=== PATIENT | male | born 1955 | race Hispanic/Latino ===

== ENCOUNTER 2019-10-02 09:37 | Inpatient (IN) | payer OTHER ==
[~2019-10-02] VITALS: Ht 167.6 cm; Wt 59.0 kg
[2019-10-02] MEDS ORDERED: ALBUTEROL INHALER 90MCG/INH IH ONE (09:49)
[2019-10-02 10:11] LABS: BASOPHILS % (AUTO) 1.2 % (0.0-5.0); EOSINOPHILS % (AUTO) 20.3 % (0.0-8.0); HEMATOCRIT 45.4 % (42-54); MEAN CORPUSCULAR HEMOGLOBIN 31.8 pg (27.0-33.0); MEAN CORPUSCULAR HGB CONC 34.8 g/dL (32.0-36.0); MEAN CORPUSCULAR VOLUME 91.3 fL (79-99); MONOCYTES % (AUTO) 8.6 % (3.0-13.0); NEUTROPHILS % (AUTO) 42.8 % (40.0-77.0); PLATELET COUNT (AUTO) 212 K/uL (130-400); RED BLOOD CELL COUNT(AUTO) 4.97 MIL/uL (4.50-6.20); RED CELL DISTRIBUTION WIDTH 12.8 % (11.0-15.5); WHITE BLOOD COUNT (AUTO) 7.5 K/uL (4.8-10.8)
[2019-10-02 10:13] LABS: CREATININE 0.9 mg/dL (0.5-1.5); POTASSIUM 3.9 mmol/L (3.5-5.1)
[2019-10-02] MEDS ORDERED: METHYLPREDNISOLONE SOD SUCC 125MG/2ML VIAL ONE (10:16)
[2019-10-02] MEDS ORDERED: LEVOFLOXACIN 750 MG/D5W 150 ML 150 ML ONE (10:17)
[2019-10-02 10:20] LABS: INR 0.93 (0.85-1.15); PARTIAL THROMBOPLASTIN TIME 23.5 SEC (26.3-35.5); PROTHROMBIN TIME 10.1 SEC (9.6-11.6)
[2019-10-02 10:29] LABS: BILIRUBIN,TOTAL 0.9 mg/dL (0.2-1.0); TOTAL PROTEIN, SERUM 7.9 g/dL (6.0-8.3); TROPONIN I 0.04 ng/mL (0.00-0.06)
[2019-10-02 10:50] LABS: ABG BASE EXCESS -4.4 mmol/L (-2.0-3.0); ABG HCO3 21.3 mmol/L (21.0-28.0); ABG OXYGEN SATURATION 98.7 % (95.0-99.0); ABG PCO2 41 mmHg (35-48)
[2019-10-02] MEDS ORDERED: ONDANSETRON HCL 4 MG/2 ML VIAL IVP PRN (12:15)
[2019-10-02] MEDS ORDERED: ALBUTEROL INHALER 90MCG/INH IH PRN (12:15)
[2019-10-02] MEDS ORDERED: ACETAMINOPHEN 325 MG TAB PO PRN ×2 (12:15)
[2019-10-02] MEDS: DOXYCYCLINE 100MG+NS 250ML 250 ML IV SCH (12:15)
[2019-10-02] MEDS: SODIUM CHLORIDE 0.9% 1000ML 1,000 ML IV SCH (12:15)
[2019-10-02] MEDS ORDERED: BENZONATATE 100 MG CAPSULE PO PRN (12:30)
[2019-10-02] MEDS ORDERED: HYDRALAZINE HCL 20 MG/ML VIAL IV PRN (13:00)
[2019-10-02] MEDS ORDERED: SODIUM CHLORIDE 0.9% 1000ML 2,000 ML IV ONE (13:24)
[2019-10-02] MEDS ORDERED: ASCORBIC ACID 500 MG TAB ONE (13:46)
[2019-10-02] MEDS ORDERED: ZINC SULFATE 220 CAPSULE ONE (13:46)
[2019-10-02] MEDS ORDERED: FAMOTIDINE/PF 20 MG/2 ML VIAL IV ONE ×2 (13:47→22:20)
[2019-10-02] MEDS ORDERED: DOXYCYCLINE 100MG+NS 250ML 250 ML IV ONE (13:47)
[2019-10-02] MEDS ORDERED: AZITHROMYCIN 500MG+NS 250ML 250 ML IV ONE (13:47)
[2019-10-02] MEDS ORDERED: ENOXAPARIN SODIUM 30 MG/0.3 ML SQ ONE (13:47)
[2019-10-02] MEDS ORDERED: ERGOCALCIFEROL (VITAMIN D2) 50,000 UNIT CAPSULE PO ONE (13:55)
[2019-10-02] MEDS: AZITHROMYCIN 500MG+NS 250ML 250 ML IV SCH (14:00)
[2019-10-02] MEDS: METHYLPREDNISOLONE SOD SUCC 40MG/ML 1ML IVP SCH ×2 (14:00→22:00)
[2019-10-02] MEDS ORDERED: ERGOCALCIFEROL (VITAMIN D2) 50,000 UNIT CAPSULE ONE (16:23)
[2019-10-02] MEDS: FAMOTIDINE/PF 20 MG/2 ML VIAL IV SCH (21:00)
[2019-10-02] MEDS ORDERED: METHYLPREDNISOLONE SOD SUCC 40MG/ML 1ML ONE (22:19)
[2019-10-03] MEDS: DOXYCYCLINE 100MG+NS 250ML 250 ML IV SCH ×2 (00:15→13:18)
[2019-10-03 02:24] LABS: APPEARANCE,URINE Clear (CLEAR); BILIRUBIN,URINE Negative (NEGATIVE); COLOR,URINE Yellow (YELLOW); GLUCOSE, URINE (UA) Negative (NEGATIVE); KETONES,URINE Trace mg/dL (NEGATIVE); LEUKOCYTE ESTERASE ,URINE Negative (NEGATIVE); NITRATE,URINE Negative (NEGATIVE); OCCULT BLOOD,URINE Negative (NEGATIVE); PH,URINE 6.5 (5.0-8.0); PROTEIN,URINE Negative (NEGATIVE)
[2019-10-03] MEDS ORDERED: DOXYCYCLINE 100MG+NS 250ML 250 ML IV ONE ×2 (02:41→13:15)
[2019-10-03] MEDS: SODIUM CHLORIDE 0.9% 1000ML 1,000 ML IV SCH ×2 (02:57→17:59)
[2019-10-03 05:07] LABS: BASOPHILS % (AUTO) 0.2 % (0.0-5.0); MEAN CORPUSCULAR HEMOGLOBIN 31.5 pg (27.0-33.0); MEAN CORPUSCULAR HGB CONC 34.5 g/dL (32.0-36.0); MEAN CORPUSCULAR VOLUME 91.3 fL (79-99); MONOCYTES % (AUTO) 2.5 % (3.0-13.0); NEUTROPHILS % (AUTO) 84.8 % (40.0-77.0); PLATELET COUNT (AUTO) 169 K/uL (130-400); RED BLOOD CELL COUNT(AUTO) 4.16 MIL/uL (4.50-6.20); RED CELL DISTRIBUTION WIDTH 12.6 % (11.0-15.5); WHITE BLOOD COUNT (AUTO) 5.6 K/uL (4.8-10.8)
[2019-10-03 05:48] LABS: ALANINE AMINOTRANSFERASE 40 U/L (12-78); ALBUMIN 3.6 g/dL (3.5-5.0); ASPARTATE AMINOTRANSFERASE 31 U/L (10-37); BILIRUBIN,TOTAL 0.5 mg/dL (0.2-1.0); CARBON DIOXIDE 26 mmol/L (21-32); CHLORIDE 111 mmol/L (101-111); CREATININE 0.9 mg/dL (0.5-1.5); GLOMERULAR FILTR. RATE CALC 91 mL/min (>60); GLUCOSE,RANDOM 138 mg/dL (70-105); LACTATE DEHYDROGENASE 209 U/L (81-234); POTASSIUM 3.9 mmol/L (3.5-5.1); SODIUM SERUM 143 mmol/L (136-145); UREA NITROGEN, BLOOD 19 mg/dL (7-18)
[2019-10-03 05:52] LABS: CRP QUANTITATIVE < 2.00 mg/L (0.00-9.0)
[2019-10-03] MEDS ORDERED: METHYLPREDNISOLONE SOD SUCC 40MG/ML 1ML ONE ×3 (05:59→21:09)
[2019-10-03] MEDS: METHYLPREDNISOLONE SOD SUCC 40MG/ML 1ML IVP SCH ×3 (06:00→21:26)
[2019-10-03] MEDS: ASCORBIC ACID 500 MG TAB PO SCH (09:58)
[2019-10-03] MEDS: ZINC SULFATE 220 CAPSULE PO SCH (09:58)
[2019-10-03] MEDS: ENOXAPARIN SODIUM 30 MG/0.3 ML SQ SCH (09:59)
[2019-10-03] MEDS: AZITHROMYCIN 500MG+NS 250ML 250 ML IV SCH (10:02)
[2019-10-03] MEDS: FAMOTIDINE/PF 20 MG/2 ML VIAL IV SCH ×2 (10:02→21:26)
[2019-10-03] MEDS ORDERED: ASCORBIC ACID 500 MG TAB ONE (10:04)
[2019-10-03] MEDS ORDERED: ZINC SULFATE 220 CAPSULE ONE (10:04)
[2019-10-03] MEDS ORDERED: AZITHROMYCIN 250 MG TABLET PO ONE (10:05)
[2019-10-03] MEDS ORDERED: ENOXAPARIN SODIUM 30 MG/0.3 ML SQ ONE (10:05)
[2019-10-03] MEDS ORDERED: FAMOTIDINE/PF 20 MG/2 ML VIAL IV ONE ×2 (10:06→21:09)
[2019-10-03] MEDS ORDERED: AZITHROMYCIN 500MG+NS 250ML 250 ML IV ONE (10:30)
[2019-10-03 20:10] VITALS: BP 129/73
[2019-10-04 00:15] VITALS: BP 115/53
[2019-10-04] MEDS ORDERED: DOXYCYCLINE 100MG+NS 250ML 250 ML IV ONE ×2 (01:27→11:17)
[2019-10-04] MEDS: DOXYCYCLINE 100MG+NS 250ML 250 ML IV SCH ×2 (01:39→13:26)
[2019-10-04 04:05] VITALS: BP 124/48
[2019-10-04] MEDS ORDERED: METHYLPREDNISOLONE SOD SUCC 40MG/ML 1ML ONE ×3 (05:49→21:08)
[2019-10-04] MEDS: METHYLPREDNISOLONE SOD SUCC 40MG/ML 1ML IVP SCH ×3 (06:10→21:40)
[2019-10-04 08:06] VITALS: BP 104/62
--- NOTE | 2019-10-04 08:07 | NUR ---
PT STATES HAS SOB ON EXCERTION, ON 3L NC AT THIS TIME, HAS PRODUCTIVE COUGH WHEEZING CRACKLES ON ALL LUNG GARCIA.
[2019-10-04] MEDS: SODIUM CHLORIDE 0.9% 1000ML 1,000 ML IV SCH (09:45)
[2019-10-04] MEDS: ENOXAPARIN SODIUM 30 MG/0.3 ML SQ SCH (10:00)
[2019-10-04] MEDS: FAMOTIDINE/PF 20 MG/2 ML VIAL IV SCH ×2 (10:59→21:40)
[2019-10-04] MEDS: ASCORBIC ACID 500 MG TAB PO SCH (11:00)
[2019-10-04] MEDS ORDERED: ASCORBIC ACID 500 MG TAB ONE (11:07)
[2019-10-04] MEDS: ZINC SULFATE 220 CAPSULE PO SCH (11:15)
[2019-10-04] MEDS ORDERED: AZITHROMYCIN 200 MG/ 5 ML BTL ONE (11:16)
[2019-10-04 11:36] LABS: HEMATOCRIT 38.6 % (42-54); MEAN CORPUSCULAR HEMOGLOBIN 31.2 pg (27.0-33.0); MEAN CORPUSCULAR HGB CONC 33.9 g/dL (32.0-36.0); MEAN CORPUSCULAR VOLUME 91.9 fL (79-99); RED BLOOD CELL COUNT(AUTO) 4.2 MIL/uL (4.50-6.20); RED CELL DISTRIBUTION WIDTH 12.8 % (11.0-15.5); WHITE BLOOD COUNT (AUTO) 10.7 K/uL (4.8-10.8)
[2019-10-04] MEDS ORDERED: AZITHROMYCIN 500MG+NS 250ML 250 ML IV ONE (11:38)
[2019-10-04 11:56] LABS: CREATININE 0.9 mg/dL (0.5-1.5); POTASSIUM 3.2 mmol/L (3.5-5.1)
[2019-10-04 13:25] VITALS: BP 122/60
[2019-10-04] MEDS: AZITHROMYCIN 500MG+NS 250ML 250 ML IV SCH (14:40)
[2019-10-04 16:51] VITALS: BP 129/59
[2019-10-04 20:00] VITALS: BP 158/78
[2019-10-05] VITALS: BP 158/79
[2019-10-05] MEDS: DOXYCYCLINE 100MG+NS 250ML 250 ML IV SCH ×2 (00:15→12:49)
[2019-10-05 03:48] VITALS: BP 111/59
[2019-10-05] MEDS ORDERED: METHYLPREDNISOLONE SOD SUCC 40MG/ML 1ML ONE (05:49)
[2019-10-05] MEDS: METHYLPREDNISOLONE SOD SUCC 40MG/ML 1ML IVP SCH ×2 (05:51→14:37)
--- NOTE | 2019-10-05 06:05 | NUR ---
PT ARRIVED VIA STRETCHER WITH LIZBETH MOTLEY AND PCP NATALIE. 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 PT STATES HE CAN NOT READ OR WRITE. POOR HISTORIAN. PT STATES HE TAKES A MEDICATION FOR HIS LUNGS THAT HE PURCHASES FROM [place] BUT DOES NOT REMEMBER THE NAME OF THE MEDICINE. NIECES PHONE NUMBER IS [phone], SHE WOULD BE HIS RIDE HOME WHEN DISCHARGED. PHONE NUMBER FOR HIS BOSS IS THEO [phone]. NC AT 3L. SOB WITH EXERTION. DENIES PAIN. VITALS 127/70, 99% WITH OXYGEN, 3L, TEMP 97.9, HEART RATE 64 NSR.
[2019-10-05 07:50] VITALS: BP 117/91
[2019-10-05] MEDS ORDERED: ZINC220C6 PO (09:45)
[2019-10-05] MEDS ORDERED: AZIT500T4 PO (09:45)
[2019-10-05] MEDS: ASCORBIC ACID 500 MG TAB PO SCH (09:55)
[2019-10-05] MEDS: ZINC SULFATE 220 CAPSULE PO SCH (09:55)
[2019-10-05] MEDS: FAMOTIDINE/PF 20 MG/2 ML VIAL IV SCH (09:55)
[2019-10-05] MEDS: ENOXAPARIN SODIUM 30 MG/0.3 ML SQ SCH (09:57)
[2019-10-05 10:53] LABS: BASOPHILS % (AUTO) 0.1 % (0.0-5.0); HEMATOCRIT 37.1 % (42-54); LYMPHOCYTES % (AUTO) 11.1 % (21.0-51.0); MEAN CORPUSCULAR HEMOGLOBIN 31.2 pg (27.0-33.0); MEAN CORPUSCULAR HGB CONC 33.4 g/dL (32.0-36.0); MEAN CORPUSCULAR VOLUME 93.2 fL (79-99); MONOCYTES % (AUTO) 4.9 % (3.0-13.0); NEUTROPHILS % (AUTO) 83.3 % (40.0-77.0); PLATELET COUNT (AUTO) 181 K/uL (130-400); RED BLOOD CELL COUNT(AUTO) 3.98 MIL/uL (4.50-6.20); RED CELL DISTRIBUTION WIDTH 12.7 % (11.0-15.5); WHITE BLOOD COUNT (AUTO) 8.1 K/uL (4.8-10.8)
[2019-10-05 11:40] LABS: ALBUMIN 3.2 g/dL (3.5-5.0); BILIRUBIN,TOTAL 0.4 mg/dL (0.2-1.0); CREATININE 0.9 mg/dL (0.5-1.5); POTASSIUM 3.7 mmol/L (3.5-5.1); TOTAL PROTEIN, SERUM 5.6 g/dL (6.0-8.3)
[2019-10-05 11:42] VITALS: BP 124/53
[2019-10-05] MEDS ORDERED: DEXTROSE 5%-WATER 1,000 ML IV ONE (13:12)
[2019-10-05] MEDS ORDERED: DEXTROSE 5%-WATER 1,000 ML IV SCH (13:15)
[2019-10-05] MEDS ORDERED: AZITHROMYCIN 500MG+NS 250ML 250 ML IV SCH (14:00)
[2019-10-05 16:00] VITALS: BP 149/78
--- NOTE | 2019-10-05 19:21 | NUR ---
INITIAL SW spoke to patient's niece, Fanny Nazario, . Patient lives with employer, [employer], . He has no insurance or benefits. Patient is able to complete ADL's independently and drives. He has no PCP. Pharmacy is [facility]. DCP is home. Patient has no insurance or benefits. He is not a [place] citizen or Legal Resident. Patient's niece educated on [employer] $4 medication program and [employer] $5 medication program. Patient is being assisted by [employer] for financial matters. Addendum: 10/05/19 at 1924 by OLEG PETERSON Amended: Links added.
--- NOTE | 2019-10-05 19:24 | NUR ---
EMERGENCY CONTACTS Fanny Aravind (niece) [phone] [employer] (employer) [phone] Patient's address is: [address] [place] [id number]
--- NOTE | 2019-10-05 19:47 | NUR ---
NURSING NOTE-D/C Pt IV removed at 1936, no complications with IV and catheter tip intact, and d/c paperwork given to PT. Pt taken to his ride at 1946 that was waiting in the ER lobby.
== END 2019-10-05 21:47 | disposition home or self-care (01) | DRG 193 ==
LOC: EDH 09:37 → EDBD 09:37 → EDHIP 09:38 → DAHIP 10-05 04:30
PROVIDERS: ADMIT Internal Medicine; ATTEND Internal Medicine
DX: J18.9 Pneumonia, unspecified organism (principal); J96.01 Acute respiratory failure with hypoxia; J44.0 Chronic obstructive pulmonary disease with (acute) lower respiratory infection; J44.1 Chronic obstructive pulmonary disease with (acute) exacerbation; M62.82 Rhabdomyolysis; Z79.899 Other long term (current) drug therapy; R53.81 Other malaise; Z20.828 Contact with and (suspected) exposure to other viral communicable diseases
CPT/HCPCS: 0099U; 36415; 36600; 71045; 80048; 80053; 81003; 82550; 82728; 82803; 82948; 83605; 83615; 83874; 84145; 84484; 85025; 85027; 85378; 85610; 85730; 86140; 86900; 86901; 87040; 87088; 87804; 93005; 99291; G0378; J0456; J1650; J1956; J2920; J2930; J3490; J7030; J7070; U0003

== ENCOUNTER 2019-11-24 13:57 | Inpatient (IN) | payer OTHER ==
[~2019-11-24] VITALS: Ht 162.6 cm; Wt 69.5 kg
[~2019-11-24 13:57] MED LIST: AZIT500T4 PO; ZINC220C6 PO
[2019-11-24] MEDS ORDERED: ALBUTEROL INHALER 90MCG/INH IH ONE (14:12)
[2019-11-24] MEDS ORDERED: METHYLPREDNISOLONE SOD SUCC 125MG/2ML VIAL ONE (14:12)
[2019-11-24] MEDS ORDERED: TERBUTALINE SULFATE VIAL 1MG/ML SQ ONE (14:12)
[2019-11-24 14:55] LABS: BASOPHILS % (AUTO) 1.4 % (0.0-5.0); EOSINOPHILS % (AUTO) 24.2 % (0.0-8.0); HEMATOCRIT 40.7 % (42-54); LYMPHOCYTES % (AUTO) 31.3 % (21.0-51.0); MEAN CORPUSCULAR HEMOGLOBIN 31.1 pg (27.0-33.0); MEAN CORPUSCULAR HGB CONC 34.6 g/dL (32.0-36.0); MEAN CORPUSCULAR VOLUME 89.8 fL (79-99); MONOCYTES % (AUTO) 10.1 % (3.0-13.0); NEUTROPHILS % (AUTO) 32.9 % (40.0-77.0); PLATELET COUNT (AUTO) 220 K/uL (130-400); RED BLOOD CELL COUNT(AUTO) 4.53 MIL/uL (4.50-6.20); RED CELL DISTRIBUTION WIDTH 12.4 % (11.0-15.5); WHITE BLOOD COUNT (AUTO) 8.3 K/uL (4.8-10.8)
[2019-11-24 15:06] LABS: POTASSIUM 3.5 mmol/L (3.5-5.1)
[2019-11-24 15:11] LABS: BILIRUBIN,TOTAL 0.5 mg/dL (0.2-1.0)
[2019-11-24] MEDS ORDERED: LEVOFLOXACIN 500 MG/D5W 100 ML 100 ML ONE (17:29)
[2019-11-24 17:43] LABS: ABG BASE EXCESS -1.8 mmol/L (-2.0-3.0); ABG HCO3 23.5 mmol/L (21.0-28.0); ABG OXYGEN SATURATION 91.4 % (95.0-99.0); ABG PCO2 42 mmHg (35-48)
[2019-11-24] MEDS ORDERED: LACTATED RINGERS 1000ML 1,000 ML IV SCH (18:57)
[2019-11-24] MEDS ORDERED: GUAIFENESIN-DM 200/20 MG 10 ML PO PRN (19:00)
[2019-11-24] MEDS ORDERED: ALBUTEROL SULFATE 0.083% 2.5 MG/3 ML INH IH PRN (19:00)
[2019-11-24] MEDS ORDERED: LIDOCAINE HCL 2% VISCOUS 30 ML, MAG HYDROX/AL HYDROX/SIMETH 30 ML, BELLADONNA-PHENOBARB... PO PRN ×3 (19:00)
[2019-11-24] MEDS ORDERED: ONDANSETRON HCL 4 MG/2 ML VIAL IV PRN (19:00)
[2019-11-24] MEDS ORDERED: ACETAMINOPHEN 325 MG TAB PO PRN ×2 (19:00)
[2019-11-24] MEDS ORDERED: NITROGLYCERIN 0.4 MG SL TAB SL PRN (19:00)
[2019-11-24] MEDS ORDERED: ACETAMINOPHEN-CODEINE 300/30MG TAB PO PRN ×2 (19:00)
[2019-11-24] MEDS ORDERED: MAG HYDROX/AL HYDROX/SIMETH ES 30 ML SUSP UDCUP PO PRN (19:00)
[2019-11-24] MEDS ORDERED: ZOLPIDEM TARTRATE 5 MG TAB PO PRN (19:00)
[2019-11-24] MEDS ORDERED: HYDRALAZINE HCL 20 MG/ML VIAL IV PRN (19:00)
[2019-11-24] MEDS ORDERED: MAG HYDROX/AL HYDROX/SIMETH 30 ML, LIDOCAINE HCL 2% VISCOUS 30 ML, DIPHENHYDRAMINE HCL ... PO PRN ×3 (19:00)
[2019-11-24] MEDS ORDERED: LACTULOSE 20 GM/30 ML UDCUP PO PRN (19:00)
[2019-11-24] MEDS ORDERED: BENZONATATE 100 MG CAPSULE PO PRN (19:00)
[2019-11-24] MEDS ORDERED: DiphenhydrAMINE HCL 50 MG/ML VIAL IV PRN (19:00)
[2019-11-24] MEDS ORDERED: DIPHENHYDRAMINE HCL 25 MG CAPSULE PO PRN (19:00)
[2019-11-24 23:00] VITALS: BP 149/82
--- NOTE | 2019-11-24 23:26 | NUR ---
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 Addendum: 11/24/19 at 0796 by HENRI MERCEDES RT Amended: Links added.
[2019-11-25] MEDS: METHYLPREDNISOLONE SOD SUCC 125MG/2ML VIAL IV SCH ×5 (00:13→23:24)
[2019-11-25] MEDS: AZITHROMYCIN 500MG+NS 250ML 250 ML IV SCH ×2 (00:13→18:29)
[2019-11-25 03:54] VITALS: BP 143/90
[2019-11-25 04:17] LABS: EOSINOPHILS % (AUTO) 1.8 % (0.0-8.0); HEMATOCRIT 39.1 % (42-54); LYMPHOCYTES % (AUTO) 11.1 % (21.0-51.0); MEAN CORPUSCULAR HEMOGLOBIN 30.8 pg (27.0-33.0); MEAN CORPUSCULAR HGB CONC 34.5 g/dL (32.0-36.0); MEAN CORPUSCULAR VOLUME 89.1 fL (79-99); MONOCYTES % (AUTO) 1.3 % (3.0-13.0); NEUTROPHILS % (AUTO) 85.5 % (40.0-77.0); PLATELET COUNT (AUTO) 221 K/uL (130-400); RED BLOOD CELL COUNT(AUTO) 4.39 MIL/uL (4.50-6.20); RED CELL DISTRIBUTION WIDTH 12.2 % (11.0-15.5); WHITE BLOOD COUNT (AUTO) 6.7 K/uL (4.8-10.8)
[2019-11-25 04:40] LABS: ALBUMIN 3.5 g/dL (3.5-5.0); BILIRUBIN,TOTAL 0.4 mg/dL (0.2-1.0); CREATININE 0.9 mg/dL (0.5-1.5); PHOSPHORUS 2.5 mg/dL (2.5-4.9); POTASSIUM 3.8 mmol/L (3.5-5.1); TOTAL PROTEIN, SERUM 6.7 g/dL (6.0-8.3)
[2019-11-25] MEDS: IPRATROPIUM/ALBUTEROL SULFATE 3 ML SOLUTION IH SCH ×4 (06:00→18:00)
[2019-11-25 08:10] VITALS: BP 146/86
[2019-11-25] MEDS: ENOXAPARIN SODIUM 40 MG/0.4 ML SYRINGE SQ SCH (09:40)
[2019-11-25 11:34] VITALS: BP 143/84
[2019-11-25 16:00] VITALS: BP 150/84
[2019-11-25 19:00] VITALS: BP 141/85
[2019-11-26] VITALS: BP_SYST 139; BP_SYST 155; BP_DIAS 76; BP_DIAS 83
[2019-11-26 04:00] VITALS: BP 148/77
[2019-11-26] MEDS: METHYLPREDNISOLONE SOD SUCC 125MG/2ML VIAL IV SCH ×4 (05:14→23:47)
--- NOTE | 2019-11-26 05:47 | NUR ---
patient has albuterol inhaler at bedside. he is using it every 6 hours to help him breath better. he used at at midnight and right now. no further issues.
[2019-11-26] MEDS: IPRATROPIUM/ALBUTEROL SULFATE 3 ML SOLUTION IH SCH ×4 (06:00→18:00)
[2019-11-26 06:16] LABS: BASOPHILS % (AUTO) 0.1 % (0.0-5.0); HEMATOCRIT 37.2 % (42-54); LYMPHOCYTES % (AUTO) 8.5 % (21.0-51.0); MEAN CORPUSCULAR HEMOGLOBIN 31.3 pg (27.0-33.0); MEAN CORPUSCULAR HGB CONC 35.2 g/dL (32.0-36.0); MEAN CORPUSCULAR VOLUME 88.8 fL (79-99); MONOCYTES % (AUTO) 3.2 % (3.0-13.0); NEUTROPHILS % (AUTO) 87.8 % (40.0-77.0); PLATELET COUNT (AUTO) 216 K/uL (130-400); RED BLOOD CELL COUNT(AUTO) 4.19 MIL/uL (4.50-6.20); RED CELL DISTRIBUTION WIDTH 12.4 % (11.0-15.5); WHITE BLOOD COUNT (AUTO) 11.8 K/uL (4.8-10.8)
[2019-11-26 06:36] LABS: ALBUMIN 3.5 g/dL (3.5-5.0); BILIRUBIN,TOTAL 0.5 mg/dL (0.2-1.0); CREATININE 0.9 mg/dL (0.5-1.5); MAGNESIUM 2.3 mg/dL (1.80-2.40); PHOSPHORUS 3.1 mg/dL (2.5-4.9); POTASSIUM 3.6 mmol/L (3.5-5.1); TOTAL PROTEIN, SERUM 6.3 g/dL (6.0-8.3)
[2019-11-26 08:00] VITALS: BP 143/81
--- NOTE | 2019-11-26 08:00 | NUR ---
AM ASSESSMENT, 02 PER NC AT 3LITERS, > WHEEZES AND RHONCHI NOTED.
[2019-11-26] MEDS: ENOXAPARIN SODIUM 40 MG/0.4 ML SYRINGE SQ SCH (09:41)
[2019-11-26 11:38] VITALS: BP 153/78
--- NOTE | 2019-11-26 14:24 | NUR ---
DCP CM met with pt discussed dc plans. Pt is independent prior to admission, lives at home alone, uri lives close by. Denies any equipments/services. Feels safe to go back home, still drives and works, pt verbalized if needed he can go home w/neice on DC. DC plan to home once stable. CM to cont to follow up. Pt is a selfpay, given [facility] packet, [facility] assisting. Addendum: 11/27/19 at 1426 by RODRIGO DELGADO LVN CM Amended: Links added.
[2019-11-26 16:00] VITALS: BP 142/87
--- NOTE | 2019-11-26 18:00 | NUR ---
BREATHING MUCH EASIER NOW. CONT. WITH 02.
[2019-11-26] MEDS: AZITHROMYCIN 500MG+NS 250ML 250 ML IV SCH (19:13)
[2019-11-26 20:00] VITALS: BP 155/83
[2019-11-26] MEDS ORDERED: POTASSIUM CHLORIDE 20 MEQ ERTAB PO ONE (23:43)
[2019-11-26] MEDS ORDERED: POTASSIUM CHLORIDE 20MEQ/100ML 100 ML IV PRN (23:45)
[2019-11-26] MEDS ORDERED: LIDOCAINE HCL-MPF 1% 2ML VIAL IV PRN (23:45)
[2019-11-26] MEDS ORDERED: POTASSIUM CHLORIDE 10% ELIXIR 20 MEQ/15 ML UDCUP PO PRN (23:45)
[2019-11-26] MEDS: POTASSIUM CHLORIDE 20 MEQ ERTAB PO PRN (23:46)
[2019-11-27] VITALS: BP 155/83
[2019-11-27 04:00] VITALS: BP 156/82
[2019-11-27] MEDS: METHYLPREDNISOLONE SOD SUCC 125MG/2ML VIAL IV SCH ×4 (04:22→23:02)
[2019-11-27 04:24] LABS: BASOPHILS % (AUTO) 0.1 % (0.0-5.0); HEMATOCRIT 38.1 % (42-54); LYMPHOCYTES % (AUTO) 6.2 % (21.0-51.0); MEAN CORPUSCULAR HEMOGLOBIN 31.3 pg (27.0-33.0); MEAN CORPUSCULAR HGB CONC 34.4 g/dL (32.0-36.0); MEAN CORPUSCULAR VOLUME 90.9 fL (79-99); MONOCYTES % (AUTO) 2.1 % (3.0-13.0); NEUTROPHILS % (AUTO) 90.8 % (40.0-77.0); PLATELET COUNT (AUTO) 228 K/uL (130-400); RED BLOOD CELL COUNT(AUTO) 4.19 MIL/uL (4.50-6.20); RED CELL DISTRIBUTION WIDTH 12.2 % (11.0-15.5); WHITE BLOOD COUNT (AUTO) 10.7 K/uL (4.8-10.8)
[2019-11-27 04:36] LABS: ALBUMIN 3.4 g/dL (3.5-5.0); BILIRUBIN,TOTAL 0.4 mg/dL (0.2-1.0); CREATININE 0.8 mg/dL (0.5-1.5); MAGNESIUM 2.7 mg/dL (1.80-2.40); PHOSPHORUS 3.2 mg/dL (2.5-4.9); POTASSIUM 3.6 mmol/L (3.5-5.1); TOTAL PROTEIN, SERUM 6.1 g/dL (6.0-8.3)
[2019-11-27] MEDS: POTASSIUM CHLORIDE 20 MEQ ERTAB PO PRN ×2 (04:57→13:21)
[2019-11-27] MEDS: IPRATROPIUM/ALBUTEROL SULFATE 3 ML SOLUTION IH SCH ×7 (06:12→21:48)
[2019-11-27] MEDS: ENOXAPARIN SODIUM 40 MG/0.4 ML SYRINGE SQ SCH (08:29)
[2019-11-27 08:30] VITALS: BP 151/77
--- NOTE | 2019-11-27 11:55 | NUR ---
DR. CASTILLO AWARE OF CASE NO NEW ORDERS FOR NOW. STATES PUT HIM ON MY CENSUS.
[2019-11-27 12:14] VITALS: BP 140/76
[2019-11-27 17:40] VITALS: BP 158/80
[2019-11-27 19:26] VITALS: BP 135/69
--- NOTE | 2019-11-27 20:00 | NUR ---
assessment note patient awake, alert, ox3, torres martinez, no sob, no c/o pain at this time, encourage deep breathing exercises, teach plan of care and expected outcome, patient verbalizes understanding via teach back
[2019-11-28] VITALS (7 sets, daily range): BP systolic 153–161; BP diastolic 77–93
[2019-11-28] MEDS: IPRATROPIUM/ALBUTEROL SULFATE 3 ML SOLUTION IH SCH ×6 (01:15→23:03)
[2019-11-28 04:03] LABS: BASOPHILS % (AUTO) 0.1 % (0.0-5.0); HEMATOCRIT 37.4 % (42-54); LYMPHOCYTES % (AUTO) 7.2 % (21.0-51.0); MEAN CORPUSCULAR HEMOGLOBIN 31.2 pg (27.0-33.0); NEUTROPHILS % (AUTO) 86.9 % (40.0-77.0); PLATELET COUNT (AUTO) 227 K/uL (130-400); RED CELL DISTRIBUTION WIDTH 11.9 % (11.0-15.5); WHITE BLOOD COUNT (AUTO) 8.8 K/uL (4.8-10.8)
[2019-11-28 04:19] LABS: CREATININE 0.9 mg/dL (0.5-1.5); POTASSIUM 3.6 mmol/L (3.5-5.1)
[2019-11-28] MEDS: METHYLPREDNISOLONE SOD SUCC 125MG/2ML VIAL IV SCH ×4 (05:08→23:23)
[2019-11-28] MEDS: ENOXAPARIN SODIUM 40 MG/0.4 ML SYRINGE SQ SCH (08:05)
--- NOTE | 2019-11-28 20:00 | NUR ---
assessment note patient awake alert, ox3, no sob, no c/o pain at this time, per patient breathing better today, encourage deep breathing exercises, teach plan of care and expected outcome ,patient verbalizes understanding via teach back
[2019-11-29] MEDS: IPRATROPIUM/ALBUTEROL SULFATE 3 ML SOLUTION IH SCH ×4 (02:00→14:31)
[2019-11-29 03:53] VITALS: BP 162/83
[2019-11-29 04:41] LABS: BASOPHILS % (AUTO) 0.2 % (0.0-5.0); HEMATOCRIT 39.9 % (42-54); LYMPHOCYTES % (AUTO) 7.1 % (21.0-51.0); MEAN CORPUSCULAR HEMOGLOBIN 30.6 pg (27.0-33.0); MEAN CORPUSCULAR HGB CONC 34.8 g/dL (32.0-36.0); MEAN CORPUSCULAR VOLUME 87.9 fL (79-99); MONOCYTES % (AUTO) 3.4 % (3.0-13.0); PLATELET COUNT (AUTO) 237 K/uL (130-400); RED BLOOD CELL COUNT(AUTO) 4.54 MIL/uL (4.50-6.20); RED CELL DISTRIBUTION WIDTH 11.6 % (11.0-15.5); WHITE BLOOD COUNT (AUTO) 8.6 K/uL (4.8-10.8)
[2019-11-29 04:58] LABS: CREATININE 0.9 mg/dL (0.5-1.5); POTASSIUM 3.4 mmol/L (3.5-5.1)
[2019-11-29] MEDS: METHYLPREDNISOLONE SOD SUCC 125MG/2ML VIAL IV SCH ×2 (05:26→16:07)
[2019-11-29] MEDS: POTASSIUM CHLORIDE 20 MEQ ERTAB PO PRN ×2 (05:26→08:22)
[2019-11-29 08:00] VITALS: BP 164/91
[2019-11-29] MEDS: ENOXAPARIN SODIUM 40 MG/0.4 ML SYRINGE SQ SCH (08:23)
[2019-11-29] MEDS ORDERED: PRED20TA3 PO (10:31)
[2019-11-29] MEDS ORDERED: BENZ-51 PO (10:31)
[2019-11-29] MEDS ORDERED: ALBU8.5H8 IH (10:31)
[2019-11-29 11:34] VITALS: BP 157/81
[2019-11-29 16:25] VITALS: BP 170/90
[2019-11-29 17:17] VITALS: BP 157/84
--- NOTE | 2019-11-29 17:27 | NUR ---
informed person to notify on profile ,spoke with michele becker ,let him know gave instruction to patient and to make sure to follow up with both primary and lung doctor ,and also to medicinal plant picker prescription. per eugenio verbilized understanding and stated will also go by his home to help him get scripts if he needs to
== END 2019-11-29 18:00 | disposition home or self-care (01) | DRG 190 ==
LOC: EDH 13:57 → EDHIP 13:58 → 3BH 22:11
PROVIDERS: ADMIT Internal Medicine; ATTEND Internal Medicine
DX: J44.1 Chronic obstructive pulmonary disease with (acute) exacerbation (principal); J96.01 Acute respiratory failure with hypoxia; R03.0 Elevated blood-pressure reading, without diagnosis of hypertension; D72.1 Eosinophilia; N19 Unspecified kidney failure; H91.92 Unspecified hearing loss, left ear; R73.9 Hyperglycemia, unspecified; Z20.828 Contact with and (suspected) exposure to other viral communicable diseases; I10 Essential (primary) hypertension; Z87.891 Personal history of nicotine dependence
CPT/HCPCS: 36415; 36600; 71045; 71250; 80048; 80053; 82785; 82803; 83735; 84100; 85025; 86255; 86606; 87040; 87426; 93005; 94640; 94664; 97039; G0378; J0456; J1650; J1956; J2930; J3105; J7120; U0003

== ENCOUNTER 2020-04-21 07:27 | Emergency (ER) | payer MEDICAID, OTHER ==
[~2020-04-21 07:27] MED LIST changes: +ALBU8.5H8 IH; -AZIT500T4 PO; +BENZ-51 PO; +PRED20TA3 PO
[2020-04-21] MEDS ORDERED: METHYLPREDNISOLONE SOD SUCC 125MG/2ML VIAL ONE (07:46)
[2020-04-21] MEDS ORDERED: IPRATROPIUM/ALBUTEROL SULFATE 3 ML SOLUTION IH ONE ×2 (07:49→09:35)
== END 2020-04-21 10:32 | disposition home or self-care (01) ==
LOC: EDH 07:27
DX: J45.901 Unspecified asthma with (acute) exacerbation (principal); E11.9 Type 2 diabetes mellitus without complications; Z72.0 Tobacco use
CPT/HCPCS: 71045; 94640 ×2; 96374; 99285; J2930